=== PATIENT | male | born 1950 | race Caucasian/White ===

== ENCOUNTER 2022-11-26 10:31 | Outpatient (CLI) | payer MEDICARE, BC ==
[2022-11-26] MEDS ORDERED: Magnevist 469MG/ML 20 ML VIAL ONE (11:04)
== END 2022-11-26 10:32 | disposition home or self-care (01) ==
LOC: CSHMRI 10:31
PROVIDERS: ATTEND Otolaryngology
DX: H90.3 Sensorineural hearing loss, bilateral (principal)
CPT/HCPCS: 70553